=== PATIENT | female | born 1960 | race Asian ===

== ENCOUNTER → 2017-11-21 08:57 | Outpatient (CLI) | payer OTHER, SELFPAY ==
--- NOTE | 2017-11-21 | DI.MG.S_ITS ---
BILATERAL DIGITAL SCREENING MAMMOGRAM 3D/2D WITH CAD: 11/21/2017 CLINICAL: Routine screening. Comparison is made to exams dated: 10/27/2016 mammogram, 10/24/2015 mammogram, and 10/06/2014 mammogram - [facility]. The tissue of both breasts is heterogeneously dense. This may lower the sensitivity of mammography. Current study was also evaluated with a Computer Aided Detection (CAD) system. No significant masses, calcifications, or other findings are seen in either breast. There has been no significant interval change. IMPRESSION: NEGATIVE There is no mammographic evidence of malignancy. A 1 year screening mammogram is recommended. This exam was interpreted at Station ID: [id number]. NOTE: For mammograms, a report in lay terms will be sent to the patient. Approximately 15% of breast malignancies will not be visualized mammographically. In the management of a palpable breast mass, a negative mammogram must not discourage biopsy of a clinically suspicious lesion. Electronically Signed By: Blaine huizar/antonette:11/23/2017 07:30:03 letter sent: Normal Exam ACR BI-RADS Category 1: Negative 3341F
== END ==
PROVIDERS: Family Provider Family Medicine; PCP Family Medicine; Visit Provider Family Medicine
DX: Z12.31 Encounter for screening mammogram for malignant neoplasm of breast (principal)
CPT/HCPCS: 77063; 77067

== ENCOUNTER → 2018-11-24 16:10 | Outpatient (CLI) | payer OTHER, SELFPAY ==
--- NOTE | 2018-11-24 | DI.RAD.S_ITS ---
PROCEDURE: XR CERVICAL SPINE 4V OR 5V INDICATIONS: LEFT UPPER EXTEMITY NUMBNESS, L CERVICAL RADICULOP TECHNIQUE: 5 views of the cervical spine acquired, including both obliques. COMPARISON: None. FINDINGS: Bones: No fractures or dislocations to the T1 level. There is minimal degenerative disc height reduction at C2-3 and C3-4. Mild such degeneration is seen at C4-5 and moderately severe such degeneration is seen at C5-6 and C6-7. Oblique images demonstrate bilaterally symmetric C5-6 and C6-7 osteophyte induced bony foraminal stenoses, moderate in overall severity. Soft tissues: No prevertebral soft tissue swelling. IMPRESSION: Moderate to moderately severe degenerative disc disease most pronounced at C5-6 and C6-7. Foraminal scan spinal stenosis likely is present at these 2 levels. Dictated by: Shahid Cox M.D. on 11/24/2018 at 16:46 Approved by: Shahid Cox M.D. on 11/24/2018 at 16:48
== END ==
PROVIDERS: Family Provider Family Medicine; PCP Family Medicine
DX: R20.0 Anesthesia of skin (principal); M50.122 Cervical disc disorder at C5-C6 level with radiculopathy
CPT/HCPCS: 72050

== ENCOUNTER → 2018-12-03 14:51 | Outpatient (CLI) | payer OTHER, SELFPAY ==
--- NOTE | 2018-12-03 | DI.MG.S_ITS ---
BILATERAL DIGITAL SCREENING MAMMOGRAM 3D/2D WITH CAD: 12/03/2018 CLINICAL: Routine screening. Comparison is made to exams dated: 11/21/2017 mammogram, 10/27/2016 mammogram, 05/22/2016 mammogram, and 10/24/2015 mammogram - [facility]. The tissue of both breasts is heterogeneously dense. This may lower the sensitivity of mammography. Current study was also evaluated with a Computer Aided Detection (CAD) system. There are benign calcifications in both breasts. No significant masses, calcifications, or other findings are seen in either breast. There has been no significant interval change. IMPRESSION: There is no mammographic evidence of malignancy. A 1 year screening mammogram is recommended. This exam was interpreted at Station ID: [id number]. NOTE: For mammograms, a report in lay terms will be sent to the patient. Approximately 15% of breast malignancies will not be visualized mammographically. In the management of a palpable breast mass, a negative mammogram must not discourage biopsy of a clinically suspicious lesion. Electronically Signed By: Nik rodriguez/antonette:12/03/2018 16:50:15 letter sent: Normal Exam ACR BI-RADS Category 2: Benign Finding(s) 3342F
== END ==
PROVIDERS: Family Provider Family Medicine; PCP Family Medicine; Visit Provider Family Medicine
DX: Z12.31 Encounter for screening mammogram for malignant neoplasm of breast (principal)
CPT/HCPCS: 77063; 77067

== ENCOUNTER → 2019-03-21 10:41 | Outpatient (CLI) | payer OTHER, SELFPAY ==
[2019-03-21 12:06] LABS: Add Manual Diff / Slide Review NO; Basophils Absolute Auto 0 /uL (0-100); Basophils Percent Auto 0.8 % (0-2); Eosinophils Absolute Auto 100 /uL (0-450); Hematocrit 38.5 % (36-46); Hemoglobin 12.9 g/dL (12.0-16.0); Lymphocytes Absolute Auto 1000 /uL (1100-4500); Lymphocytes Percent Auto 26.3 % (25-40); Mean Corpuscular HGB Conc 33.6 % (30-36); Mean Corpuscular Hemoglobin 32.1 PG (26-34); Mean Corpuscular Volume 95.7 fL (80-100); Monocytes Absolute Auto 500 /uL (0-900); Monocytes Percent Auto 12.1 % (3-14); Neutrophils Absolute Auto 2200 /uL (1500-7000); Neutrophils Percent Auto 57.8 % (50-75); Platelet Count 317 X10^3/uL (150-400); Red Blood Cell Count 4.02 X10^6/uL (4.0-5.2); Red Cell Distribution Width 13.5 % (11.6-14.8); White Blood Cell Count 3.7 X10^3/uL (4.5-11.0)
[2019-03-21 13:33] LABS: HEMOLYSIS < 15 (0-50)
[2019-03-21 13:35] LABS: Alanine Aminotransferase 23 IU/L (9-52); Albumin 4.2 g/dL (3.5-5.0); Albumin Globulin Ratio 1.4 (1.0-2.8); Alkaline Phosphatase 78 U/L (38-126); Aspartate Aminotransferase 33 IU/L (14-36); BUN Creatinine Ratio 28.6 (6-22); Bilirubin Total 0.5 mg/dL (0.2-1.3); Blood Urea Nitrogen 20 mg/dL (7-17); Calcium 9.5 mg/dL (8.4-10.2); Carbon Dioxide 28 mmol/L (22-32); Chloride 102 mmol/L (98-107); Estimated Glomerular Filt Rate > 60.0 mL/min (>60); Globulin 3.1 g/dL (1.7-4.1); Glucose 96 mg/dL (70-100); Sodium 141 mmol/L (137-145); Total Protein 7.3 g/dL (6.3-8.2)
[2019-03-21 13:58] LABS: TSH w/ Reflex to FT4 1.11 uIU/mL (0.47-4.68)
== END ==
PROVIDERS: Family Provider Family Medicine; PCP Family Medicine; Visit Provider Family Medicine
DX: R53.83 Other fatigue (principal); Z78.0 Asymptomatic menopausal state
CPT/HCPCS: 36415; 80053; 84443; 85025

== ENCOUNTER → 2020-02-02 15:19 | Outpatient (CLI) | payer OTHER, SELFPAY ==
--- NOTE | 2020-02-02 | DI.MG.S_ITS ---
BILATERAL DIGITAL SCREENING MAMMOGRAM 3D/2D WITH CAD: 02/02/2020 CLINICAL: Routine screening. Comparison is made to exams dated: 12/03/2018 mammogram, 10/27/2016 mammogram, and 11/21/2017 mammogram - [facility]. The tissue of both breasts is heterogeneously dense. This may lower the sensitivity of mammography. Current study was also evaluated with a Computer Aided Detection (CAD) system. There are benign calcifications in both breasts. No significant masses, calcifications, or other findings are seen in either breast. There has been no significant interval change. IMPRESSION: There is no mammographic evidence of malignancy. A 1 year screening mammogram is recommended. This exam was interpreted at Station ID: [id number]. NOTE: For mammograms, a report in lay terms will be sent to the patient. Approximately 15% of breast malignancies will not be visualized mammographically. In the management of a palpable breast mass, a negative mammogram must not discourage biopsy of a clinically suspicious lesion. Electronically Signed By: Faizan hernández/antonette:02/02/2020 17:36:48 letter sent: Normal Exam ACR BI-RADS Category 2: Benign Finding(s) 3342F
== END ==
PROVIDERS: Family Provider Family Medicine; PCP Family Medicine; Referring Provider Family Medicine; Visit Provider Family Medicine
DX: Z12.31 Encounter for screening mammogram for malignant neoplasm of breast (principal)
CPT/HCPCS: 77063; 77067

== ENCOUNTER → 2021-02-15 15:22 | Outpatient (CLI) | payer OTHER, SELFPAY ==
--- NOTE | 2021-02-15 15:24 | DI.MG.S_ITS ---
BILATERAL DIGITAL SCREENING MAMMOGRAM 3D/2D WITH CAD: 02/15/2021 CLINICAL: Routine screening. Comparison is made to exams dated: 02/02/2020 mammogram, 12/03/2018 mammogram, and 11/21/2017 mammogram - [facility]. The tissue of both breasts is heterogeneously dense. This may lower the sensitivity of mammography. Current study was also evaluated with a Computer Aided Detection (CAD) system. There are benign calcifications in both breasts. No significant masses, calcifications, or other findings are seen in either breast. There has been no significant interval change. IMPRESSION: BENIGN There is no mammographic evidence of malignancy. A 1 year screening mammogram is recommended. This exam was interpreted at Station ID: [id number]. NOTE: For mammograms, a report in lay terms will be sent to the patient. Approximately 15% of breast malignancies will not be visualized mammographically. In the management of a palpable breast mass, a negative mammogram must not discourage biopsy of a clinically suspicious lesion. Electronically Signed By: Nik rodriguez/antonette:02/15/2021 16:02:38 letter sent: Normal Exam ACR BI-RADS Category 2: Benign Finding(s) 3342F
== END ==
PROVIDERS: Family Provider Family Medicine; PCP Family Medicine; Referring Provider Family Medicine; Visit Provider Family Medicine
DX: Z12.31 Encounter for screening mammogram for malignant neoplasm of breast (principal)
CPT/HCPCS: 77063; 77067

== ENCOUNTER 2021-10-24 15:50 | Emergency (ER) | payer OTHER, SELFPAY ==
[2021-10-24 16:04] VITALS: BP 167/72; PULSE 74; RESP 20; TEMP 36.7; O2SAT 98; BMI 23.8
--- NOTE | 2021-10-24 21:15 | PC.NURSE ---
c/o tingling to the left side no neural deficits noted, hx of a pinched nerve
--- NOTE | 2021-10-24 21:22 | ED_ITS ---
HPI - Neuro Symptoms/Deficit General Chief Complaint: Neuro Symptoms/Deficit Stated Complaint: Tingling and Numbness on Lt Side Time Seen by Provider: 10/24/21 21:08 Source: patient Mode of arrival: Ambulatory History of Present Illness HPI Narrative: Patient is a 61-year-old female. Is relatively healthy. Is here in the emergency department for evaluations of symptoms she developed earlier today. She states that she started to have pain in her left thigh. She has had issues like this in the past. She states that is happened in the past when she has been standing on her left side and leaning to her left side. It does give some characteristics of radiculopathy per her reports. She also states that earlier today she had discomfort on the outside of her left breast. That has resolved. She was also having some tingling to the left side of her face. That has also resolved. With tingling to left side of her face in the pain left side of her breast lasted approximately 1 hour. Was of fairly sudden onset. She has never had anything like this in the past. At the time was not describing any other associated symptoms. The not tried anything for the symptoms prior to arrival. On Anticoagulants: No Related Data Home Medications Medication Instructions Recorded Confirmed multivitamin 1 tab PO DAILY 10/16/21 10/16/21 Previous Rx's Medication Instructions Recorded triamcinolone acetonide 0.5 % 1 applic TOP TID #15 g 10/17/21 topical cream Allergies Allergy/AdvReac Type Severity Reaction Status Date / Time No Known Drug Allergies Allergy Verified 10/17/21 11:07 Review of Systems Review of Systems ROS Unobtainable: All systems reviewed & are unremarkable except as noted in HPI and below Constitutional Constitutional: Denies fever(s), Denies headache(s) and Denies weakness Eyes Eyes: Denies change in vision and Denies loss of vision ENT Ears, Nose, Mouth, and Throat: Reports system reviewed and no additional compla ints, except as documented, Reports as per HPI, Denies vertigo, Denies dizziness and Denies headache(s) Cardiovascular Cardiovascular: Reports system reviewed and no additional complaints, except as documented, Denies chest pain and Denies dyspnea Comments: Left breast pain Respiratory Respiratory: Denies cough and Denies dyspnea Gastrointestinal Gastrointestinal: Reports system reviewed and no additional complaints, except as documented and Denies abdominal pain Genitourinary Genitourinary: Reports system reviewed and no additional complaints, except as documented Musculoskeletal Musculoskeletal: Reports system reviewed and no additional complaints, except as documented, Reports as per HPI, Denies abnormal gait and Reports numbness Integumentary/Breasts Skin/Breast: Denies rash Neurologic Neurologic: Denies system reviewed and no additional complaints, except as documented, Reports as per HPI, Denies abnormal movements, Denies abnormal speech, Denies abnormal gait, Denies vertigo, Denies dizziness, Denies headache(s), Denies loss of vision, Reports numbness and Denies weakness Psychiatric Psychiatric: Reports system reviewed and no additional complaints, except as documented Hematologic/Lymphatic On Anticoagulants: No Allergic/Immunologic Allergic/Immunologic: Reports system reviewed and no additional complaints, except as documented Patient History Medical History Pre-syncope (12/30/13) Surgical History Status post colonoscopy Status post laparoscopic cholecystectomy Status post tubal ligation Family History Mother Ovarian cancer Stomach cancer Social History Smoking Status: Former smoker Smoking Status: Former smoker alcohol intake frequency: holidays/special occasions only Alcohol type: wine Substance Use Type: does not use Exam Initial Vital Signs Initial Vital Signs: Vital Signs Temperature 98.1 F 10/24/21 16:04 Pulse Rate 74 10/24/21 16:04 Respiratory Rate 20 10/24/21 16:04 Blood Pressure 167/72 H 10/24/21 16:04 Pulse Oximetry 98 10/24/21 16:04 HENOH Head: normal to inspection and normocephalic Face and sinus: normal facial exam Mouth: oral mucosae normal Eyes General: appearance normal, both eyes and all related structures Pupils: PERRL EOM: EOM intact bilaterally Chest Chest: No crepitus and No tenderness Resp Effort & Inspection: normal respiratory effort Auscultation: clear to auscultation bilaterally Cardio Rate: regular rate Rhythm: regular rhythm GI Inspection: normal to inspection Palpation: soft and No tender Skin General: no rashes or lesions noted Neuro General: patient alert, patient awake, patient oriented x3 and moves all extremities Cranial Nerves: CN's II-XI intact bilaterally Cognition: normal cognition Speech: speech normal Gait: normal gait Sensory Exam: no sensory deficits noted Extrem General: normal to inspection and capillary refill normal Psych Appearance: grossly normal and well kempt Course Orders Ordered: ED Orders 10/24/21 21:34 Complete Blood Count AUTO DIFF Stat Comprehensive Metabolic Panel Stat Magnesium Stat Phosphorous Stat Vital Signs Vital signs: Vital Signs - 8 hr 10/24/21 23:26 Pulse Rate 68 Respiratory Rate 18 Blood Pressure 147/81 H Pulse Oximetry 100 MDM - Neuro Symptoms/Deficit Lab Data Attestation: I reviewed the patient's lab results. Result diagrams: 10/24/21 21:34 10/24/21 21:34 Labs: Lab Results 10/24/21 10/24/21 Range/Units 21:34 21:34 WBC 4.8 (4.5-11.0) X10^3/uL RBC 4.26 (4.0-5.2) X10^6/uL Hgb 13.8 (12.0-16.0) g/dL Hct 40.4 (36-46) % MCV 94.7 (80-100) fL MCH 32.3 (26-34) PG MCHC 34.1 (30-36) % RDW 13.9 (11.6-14.8) % Plt Count 267 (150-400) X10^3/uL Neut % (Auto) 55.3 (50-75) % Lymph % (Auto) 31.2 (25-40) % Cavalier % (Auto) 10.5 (3-14) % Eos % (Auto) 2.2 (2-4) % Baso % (Auto) 0.8 (0-2) % Neut # (Auto) 2700 (3032-3049) /uL Lymph # (Auto) 1500 (8934-3717) /uL Cavalier # (Auto) 500 (0-900) /uL Eos # (Auto) 100 (0-450) /uL Baso # (Auto) 0 (0-100) /uL Sodium 140 (137-145) mmol/L Potassium 4.3 (3.4-5.1) mmol/L Chloride 103 (98-107) mmol/L Carbon Dioxide 28 (22-32) mmol/L BUN 21 H (7-17) mg/dL Creatinine 0.84 (0.52-1.04) mg/dL Estimated GFR > 60 (>60) mL/min BUN/Creatinine Ratio 25.0 H (6-22) Glucose 101 H (70-100) mg/dL Calcium 8.9 (8.4-10.2) mg/dL Phosphorus 3.8 (2.5-4.5) mg/dL Magnesium 2.1 (1.6-2.3) mg/dL Total Bilirubin 0.4 (0.2-1.3) mg/dL AST 36 (14-36) IU/L ALT 24 (<35) IU/L Alkaline Phosphatase 64 (38-126) U/L Total Protein 8.2 (6.3-8.2) g/dL Albumin 4.5 (3.5-5.0) g/dL Globulin 3.7 (1.7-4.1) g/dL Albumin/Globulin Ratio 1.2 (1.0-2.8) MDM Narrative Medical decision making narrative: The symptoms that she describes that her left leg could we will be radiculopathy as a does correspond to the upper lumbar region and she has had symptoms similar to this in the past and she can somewhat reproduces symptoms by leaning to the left side. The pain in her left breast has resolved. I have low suspicion for ACS or pulmonary embolism given her presentation. It did seem to be isolated to the skin to the left side of her left breast. There is no changes there currently. She did have tingling in the left side of her face. She has no other neurologic symptoms. There is no skin rash over the area. Low suspicion for zoster. Low suspicion for Landers's palsy. Given her presentation also have low suspicion for TIA or CVA. She is afebrile. Electrolytes are unremarkable. Unsure the exact etiology of all of her symptoms however I feel patient could be safely discharged home with strict return precautions and follow-up with primary doctor. Patient expressed understanding of this lack of definitive diagnosis. She was in agreement expressed understanding of the return precautions and plan. Discharge Plan Departure Patient Disposition: Home Clinical Impression: Paresthesias Instructions: DI for Numbness/Tingling Activity Restrictions/Additional Instructions: Please keep all of your scheduled medical appointments. Recommend that you contact your primary doctor for a follow-up and return to the emergency department for any new or worsening symptoms like we discussed. Prescriptions: No Action multivitamin Tablet 1 tab PO DAILY 0RF triamcinolone acetonide 0.5 % cream 1 applic TOP TID Qty: 15 2RF Referrals: Nathalie Cabrera MD [Primary Care Provider] -
[2021-10-24 21:54] LABS: Add Manual Diff / Slide Review NO; Basophils Absolute Auto 0 /uL (0-100); Basophils Percent Auto 0.8 % (0-2); Eosinophils Absolute Auto 100 /uL (0-450); Eosinophils Percent Auto 2.2 % (2-4); Hematocrit 40.4 % (36-46); Hemoglobin 13.8 g/dL (12.0-16.0); Lymphocytes Absolute Auto 1500 /uL (1100-4500); Lymphocytes Percent Auto 31.2 % (25-40); Mean Corpuscular HGB Conc 34.1 % (30-36); Mean Corpuscular Hemoglobin 32.3 PG (26-34); Mean Corpuscular Volume 94.7 fL (80-100); Monocytes Absolute Auto 500 /uL (0-900); Monocytes Percent Auto 10.5 % (3-14); Neutrophils Absolute Auto 2700 /uL (1500-7000); Neutrophils Percent Auto 55.3 % (50-75); Platelet Count 267 X10^3/uL (150-400); Red Blood Cell Count 4.26 X10^6/uL (4.0-5.2); Red Cell Distribution Width 13.9 % (11.6-14.8); White Blood Cell Count 4.8 X10^3/uL (4.5-11.0)
[2021-10-24 21:59] LABS: Alanine Aminotransferase 24 IU/L (<35); Albumin 4.5 g/dL (3.5-5.0); Albumin Globulin Ratio 1.2 (1.0-2.8); Alkaline Phosphatase 64 U/L (38-126); Aspartate Aminotransferase 36 IU/L (14-36); Bilirubin Total 0.4 mg/dL (0.2-1.3); Blood Urea Nitrogen 21 mg/dL (7-17); Calcium 8.9 mg/dL (8.4-10.2); Carbon Dioxide 28 mmol/L (22-32); Chloride 103 mmol/L (98-107); Estimated Glomerular Filt Rate > 60 mL/min (>60); Globulin 3.7 g/dL (1.7-4.1); Glucose 101 mg/dL (70-100); HEMOLYSIS < 15 (0-50); Magnesium 2.1 mg/dL (1.6-2.3); Phosphorous 3.8 mg/dL (2.5-4.5); Potassium 4.3 mmol/L (3.4-5.1); Sodium 140 mmol/L (137-145); Total Protein 8.2 g/dL (6.3-8.2)
[2021-10-24 23:26] VITALS: BP 147/81; PULSE 68; RESP 18; O2SAT 100
== END 2021-10-24 23:31 | disposition home or self-care (01) ==
PROVIDERS: Emergency Provider Emergency Medicine; Family Provider Family Medicine; PCP Family Medicine
DX: R20.2 Paresthesia of skin (principal); Z87.891 Personal history of nicotine dependence
CPT/HCPCS: 36415; 80053; 83735; 84100; 85025; 99281; 99283

== ENCOUNTER → 2021-11-18 12:19 | Outpatient (CLI) | payer OTHER, SELFPAY ==
--- NOTE | 2021-11-18 12:20 | DI.US.S_ITS ---
PROCEDURE: US PELVIC COMPLETE INDICATIONS: SPOTTING POST MENOPAUSE TECHNIQUE: Real-time scanning was performed of the pelvic organs, with image documentation. Additional endovaginal scanning was necessary due to incomplete visualization of the adnexal and endometrial structures by transabdominal scanning. COMPARISON: None. FINDINGS: Uterus: Uterus is anteverted and normal in size at 6.7 x 4.4 x 3.2 cm. The myometrium is homogeneous without dominant mass.. The endometrium measures 6.2 mm combined thickness. There are small cystic areas within the endometrium. No focal endometrial mass. Normal vascularity. Ovaries: The right ovary is not seen. The left ovary measures 1.7 x 1.7 x 1.0 cm, with a calculated ovarian volume of 1.5 cc. The left ovary has a normal sonographic appearance. Less than 12 follicles are present. Normal vascularity. There are dilated adnexal vessels bilaterally, left more so than right. No adnexal masses are seen. Other: No pathologic free abdominal or pelvic fluid. IMPRESSION: 1. Slight thickening and cystic change in the endometrium. While this is most likely cystic endometrial hyperplasia, tissue acquisition is recommended, given slight endometrial thickening for postmenopausal female. 2. Distended periuterine vasculature raising the possibility of pelvic congestion syndrome. 3. Nonvisualization of the right ovary. We strive to produce accurate, complete, and clear reports of imaging services. To assist us in improving patient care, this report was composed using standard report templates and voice recognition software. Therefore, it may contain abnormal punctuation, insertions and/or omissions. Occasional wrong-word or sound-alike substitutions may occur. Though we review the report and make efforts to correct it, we do recommend that the report be read carefully in proper context to recognize any text inaccuracies. Dictated by: Shannon York M.D. on 11/20/2021 at 9:06 Approved by: Shannon York M.D. on 11/20/2021 at 9:10
== END ==
PROVIDERS: Family Provider Family Medicine; PCP Family Medicine; Referring Provider Family Medicine; Visit Provider Family Medicine
DX: N93.9 Abnormal uterine and vaginal bleeding, unspecified (principal); R10.32 Left lower quadrant pain; R93.89 Abnormal findings on diagnostic imaging of other specified body structures; Z13.820 Encounter for screening for osteoporosis; M85.89 Other specified disorders of bone density and structure, multiple sites; Z78.0 Asymptomatic menopausal state; Z80.41 Family history of malignant neoplasm of ovary; Z91.89 Other specified personal risk factors, not elsewhere classified
CPT/HCPCS: 76830; 76856; 77080

== ENCOUNTER → 2022-02-20 11:03 | Outpatient (CLI) | payer OTHER, SELFPAY ==
--- NOTE | 2022-02-20 11:04 | DI.MG.S_ITS ---
BILATERAL DIGITAL SCREENING MAMMOGRAM 3D/2D WITH CAD: 02/20/2022 CLINICAL: Routine screening. Comparison is made to exams dated: 02/15/2021 mammogram, 02/02/2020 mammogram, and 12/03/2018 mammogram - [facility]. The tissue of both breasts is heterogeneously dense. This may lower the sensitivity of mammography. Current study was also evaluated with a Computer Aided Detection (CAD) system. There are benign calcifications in both breasts. No significant masses, calcifications, or other findings are seen in either breast. There has been no significant interval change. IMPRESSION: BENIGN There is no mammographic evidence of malignancy. A 1 year screening mammogram is recommended. Based on the Tyrer Cuzick model (a risk assessment model) the patient's lifetime risk is 9.7% and her 10 year risk is 3.8%. According to the ACR, ACS, and NCCN guidelines, an annual breast MRI exam along with mammogram is recommended if the patient's lifetime risk is 20% or greater. This exam was interpreted at Station ID: [id number]. NOTE: For mammograms, a report in lay terms will be sent to the patient. Approximately 15% of breast malignancies will not be visualized mammographically. In the management of a palpable breast mass, a negative mammogram must not discourage biopsy of a clinically suspicious lesion. Electronically Signed By: Kaveh hernandez/antonette:02/20/2022 11:43:32 letter sent: Normal Exam ACR BI-RADS Category 2: Benign Finding(s) 3342F
== END ==
PROVIDERS: Family Provider Family Medicine; PCP Family Medicine; Referring Provider Pediatrics; Visit Provider Family Medicine
DX: Z12.31 Encounter for screening mammogram for malignant neoplasm of breast (principal)
CPT/HCPCS: 77063; 77067

== ENCOUNTER → 2022-10-29 08:02 | Outpatient (CLI) | payer OTHER, SELFPAY ==
[2022-10-29 09:03] LABS: Hematocrit 40.4 % (36-46); Hemoglobin 13.6 g/dL (12.0-16.0); Mean Corpuscular HGB Conc 33.7 % (30-36); Mean Corpuscular Hemoglobin 32.2 PG (26-34); Mean Corpuscular Volume 95.8 fL (80-100); Platelet Count 325 X10^3/uL (150-400); Red Blood Cell Count 4.22 X10^6/uL (4.0-5.2); Red Cell Distribution Width 13.3 % (11.6-14.8); White Blood Cell Count 4.5 X10^3/uL (4.5-11.0)
[2022-10-29 09:16] LABS: Alanine Aminotransferase 42 IU/L (<35); Albumin 4.5 g/dL (3.5-5.0); Albumin Globulin Ratio 1.2 (1.0-2.8); Alkaline Phosphatase 78 U/L (38-126); Aspartate Aminotransferase 45 IU/L (14-36); BUN Creatinine Ratio 21.9 (6-22); Bilirubin Total 0.5 mg/dL (0.2-1.3); Blood Urea Nitrogen 14 mg/dL (7-17); Calcium 8.8 mg/dL (8.4-10.2); Carbon Dioxide 30 mmol/L (22-32); Chloride 99 mmol/L (98-107); Cholesterol 180 mg/dL (140-199); Estimated Glomerular Filt Rate > 60 mL/min (>60); Globulin 3.7 g/dL (1.7-4.1); Glucose 92 mg/dL (80-110); HDL Cholesterol 58 mg/dL (40-60); HEMOLYSIS < 15 (0-50); LDL Cholesterol Calculated 111 mg/dL (<100); Potassium 3.9 mmol/L (3.4-5.1); Sodium 138 mmol/L (137-145); Total Protein 8.2 g/dL (6.3-8.2); Triglycerides 55 mg/dL (35-150)
== END ==
PROVIDERS: Family Provider Family Medicine; PCP Registered Nurse Diabetes Educator; Referring Provider Registered Nurse Diabetes Educator; Visit Provider Registered Nurse Diabetes Educator
DX: Z00.00 Encounter for general adult medical examination without abnormal findings (principal)
CPT/HCPCS: 36415; 80053; 80061; 84443; 85027

== ENCOUNTER → 2022-11-07 06:51 | Outpatient (CLI) | payer OTHER, SELFPAY ==
--- NOTE | 2022-11-07 06:52 | DI.US.S_ITS ---
PROCEDURE: US PELVIC COMPLETE INDICATIONS: reeval endometrial thickening TECHNIQUE: Real-time scanning was performed of the pelvic organs, with image documentation. Additional endovaginal scanning was necessary due to incomplete visualization of the adnexal and endometrial structures by transabdominal scanning. COMPARISON: [facility], , US PELVIC COMPLETE, 11/18/2021, 13:36. FINDINGS: Uterus: Uterus is anteverted and normal in size at 7.0 x 3.4 x 4.7 cm. The myometrium is heterogeneous. The endometrium measures 5.3 mm combined thickness, previously 6.2 millimeter. Internal cystic change present, similar to prior. Prominent arcuate vasculature. Ovaries: Not visualized due to overlying bowel gas and presumed atrophy. Other: No pathologic free abdominal or pelvic fluid. IMPRESSION: Similar endometrial thickening with internal cystic change, measuring 5.3 millimeters, previously 6.2 millimeters. Cystic endometrial hyperplasia is most likely, but malignancy not excluded. Consider tissue sampling if not artery performed. Prominent arcuate vasculature, which can be seen in the setting of pelvic congestion syndrome. We strive to produce accurate, complete, and clear reports of imaging services. To assist us in improving patient care, this report was composed using standard report templates and voice recognition software. Therefore, it may contain abnormal punctuation, insertions and/or omissions. Occasional wrong-word or sound-alike substitutions may occur. Though we review the report and make efforts to correct it, we do recommend that the report be read carefully in proper context to recognize any text inaccuracies. Dictated by: Erik Andujar M.D. on 11/07/2022 at 9:03 Approved by: Erik Andujar M.D. on 11/07/2022 at 9:07
== END ==
PROVIDERS: Family Provider Family Medicine; PCP Registered Nurse Diabetes Educator; Referring Provider Registered Nurse Diabetes Educator; Visit Provider Registered Nurse Diabetes Educator
DX: R93.89 Abnormal findings on diagnostic imaging of other specified body structures (principal)
CPT/HCPCS: 76830; 76856

== ENCOUNTER → 2022-12-09 17:07 | Outpatient (CLI) | payer OTHER, SELFPAY ==
[2022-12-09 18:33] LABS: Alanine Aminotransferase 21 IU/L (<35); Albumin 4.3 g/dL (3.5-5.0); Albumin Globulin Ratio 1.3 (1.0-2.8); Alkaline Phosphatase 88 U/L (38-126); Aspartate Aminotransferase 30 IU/L (14-36); Bilirubin Total 0.3 mg/dL (0.2-1.3); Bilirubin Unconjugated 0.1 mg/dL (0.0-1.1); Globulin 3.3 g/dL (1.7-4.1); HEMOLYSIS < 15 (0-50); Total Protein 7.6 g/dL (6.3-8.2)
== END ==
PROVIDERS: Family Provider Family Medicine; PCP Registered Nurse Diabetes Educator; Referring Provider Registered Nurse Diabetes Educator; Visit Provider Registered Nurse Diabetes Educator
DX: R74.8 Abnormal levels of other serum enzymes (principal); Z80.41 Family history of malignant neoplasm of ovary
CPT/HCPCS: 36415; 80076; 81162

== ENCOUNTER → 2023-03-05 15:33 | Outpatient (CLI) | payer OTHER, SELFPAY ==
--- NOTE | 2023-03-05 | DI.MG.S_ITS ---
BILATERAL DIGITAL SCREENING MAMMOGRAM 3D/2D WITH CAD: 03/05/2023 CLINICAL: Routine screening. Comparison is made to exams dated: 02/20/2022 mammogram, 02/15/2021 mammogram, and 02/02/2020 mammogram - [facility]. Both breasts are heterogeneously dense, which may obscure small masses (category c / 51-75% glandular tissue). Current study was also evaluated with a Computer Aided Detection (CAD) system. There are benign calcifications in both breasts. No significant masses, calcifications, or other findings are seen in either breast. There has been no significant interval change. IMPRESSION: BENIGN There is no mammographic evidence of malignancy. A 1 year screening mammogram is recommended. Based on the Tyrer Cuzick model (a risk assessment model) the patient's lifetime risk is 9.5% and her 10 year risk is 3.8%. According to the ACR, ACS, and NCCN guidelines, an annual breast MRI exam along with mammogram is recommended if the patient's lifetime risk is 20% or greater. This exam was interpreted at Station ID: [id number]. NOTE: For mammograms, a report in lay terms will be sent to the patient. Approximately 15% of breast malignancies will not be visualized mammographically. In the management of a palpable breast mass, a negative mammogram must not discourage biopsy of a clinically suspicious lesion. Electronically Signed By: Nik rodriguez/antonette:03/15/2023 14:24:20 letter sent: Normal Exam ACR BI-RADS Category 2: Benign Finding(s) 3342F
== END ==
PROVIDERS: Family Provider Family Medicine; PCP Registered Nurse Diabetes Educator; Referring Provider Registered Nurse Diabetes Educator; Visit Provider Registered Nurse Diabetes Educator
DX: Z12.31 Encounter for screening mammogram for malignant neoplasm of breast (principal)
CPT/HCPCS: 77063; 77067

== ENCOUNTER → 2023-05-18 08:54 | Outpatient (CLI) | payer OTHER, SELFPAY ==
--- NOTE | 2023-05-18 08:55 | DI.US.S_ITS ---
PROCEDURE: US PELVIC COMPLETE INDICATIONS: SPOTTING. HISTORY OF ENDOMETRIAL THICKENING TECHNIQUE: Real-time scanning was performed of the pelvic organs, with image documentation. Additional endovaginal scanning was necessary due to incomplete visualization of the adnexal and endometrial structures by transabdominal scanning. COMPARISON: [facility], US, US PELVIC COMPLETE, 11/07/2022, 6:58. FINDINGS: Uterus: Uterus is anteverted and normal in size at 6.4 x 5.8 x 3.1 cm. The myometrium is heterogeneous. No discrete uterine fibroid is seen. Prominent uterine vessels are noted measures up to 2.2 mm in size near fundus. The endometrium measures 6.4 mm combined thickness. No gross endometrial mass or fluid is seen. Tiny cystic areas are noted within endometrium. Ovaries: The right ovary measures 3.1 x 2.3 x 1 cm, with a calculated ovarian volume of 4 cc. The left ovary measures 2.7 x 1.3 x 1 cm, with a calculated ovarian volume of 1.8 cc. 4 x 4 mm echogenic focus within right ovary is seen without internal vascularity. Less than 12 follicles can be seen in each ovary. No adnexal masses are seen. Mild prominence of bilateral adnexal vessels are noted measures up to 5 mm in size on the right side and 5.1 mm in size on the left side. Other: No pathologic free abdominal or pelvic fluid. IMPRESSION: 1. No endometrial mass or fluid. No discrete uterine fibroids. 2. Focal 4 mm calcification involving right ovary. No solid appearing ovarian lesion. No evidence of ovarian torsion. 3. Mild prominence of bilateral adnexal vessels and uterine vessels which can be seen in the case of pelvic congestion suggest clinical correlation. We strive to produce accurate, complete, and clear reports of imaging services. To assist us in improving patient care, this report was composed using standard report templates and voice recognition software. Therefore, it may contain abnormal punctuation, insertions and/or omissions. Occasional wrong-word or sound-alike substitutions may occur. Though we review the report and make efforts to correct it, we do recommend that the report be read carefully in proper context to recognize any text inaccuracies. Dictated by: Óscar Warner M.D. on 05/18/2023 at 13:09 Approved by: Óscar Warner M.D. on 05/18/2023 at 13:13
== END ==
PROVIDERS: Family Provider Family Medicine; PCP Registered Nurse Diabetes Educator; Referring Provider Obstetrics & Gynecology; Visit Provider Obstetrics & Gynecology
DX: N95.0 Postmenopausal bleeding (principal); R93.89 Abnormal findings on diagnostic imaging of other specified body structures
CPT/HCPCS: 76830; 76856

== ENCOUNTER 2023-05-22 07:04 | Day surgery (SDC) | payer OTHER, SELFPAY ==
[2023-05-22 07:20] VITALS: BP 124/84; PULSE 84; RESP 17; TEMP 36.9; O2SAT 98; BMI 24.1
[2023-05-22] MEDS: LACTATED RINGERS 1,000 ML 42 ML IV (08:00)
--- NOTE | 2023-05-22 08:14 | PM.HP.1 ---
History of Present Illness History of Present Illness Date Patient Seen: 05/22/23 Time Patient Seen: 08:14 Chief complaint: Screening Colonoscopy w/poss bx Narrative: Last colonoscopy was 10 years ago. No family history, no symptoms related to colon cancer [facility] Medical History Dyslipidemia BPPV (benign paroxysmal positional vertigo) Pre-syncope (12/30/13) Surgical History Status post colonoscopy Status post tubal ligation Status post laparoscopic cholecystectomy Family History Mother Ovarian cancer Stomach cancer Social History household members: spouse Smoking Status: Former smoker alcohol intake: current Meds Home Medications and Allergies Home Medications Medication Instructions Recorded Confirmed Type multivitamin 1 tab PO DAILY 10/16/21 05/22/23 History triamcinolone acetonide 0.5 % 1 applic topical TID #15 grams 10/17/21 05/22/23 Rx topical cream Allergies Allergy/AdvReac Type Severity Reaction Status Date / Time No Known Drug Allergies Allergy Verified 05/22/23 07:19 Review of Systems Review of Systems ROS: Yes All systems reviewed with the patient and are negative except as otherwise documented Exam Vital Signs (past 8 hours): - 05/22/23 07:20 Temperature 98.4 F Pulse Rate 84 Respiratory Rate 17 Blood Pressure 124/84 Pulse Oximetry 98 Oxygen Delivery Method Room Air Oxygen Delivery Method Room Air Const General: cooperative and healthy appearing Nutritional Appearance: average body habitus [facility] Head: normocephalic and atraumatic Eyes General: appearance normal, both eyes and all related structures Neck Neck: no meningeal signs and trachea midline Resp Effort & Inspection: normal respiratory effort and able to speak in complete sentences Cardio Rate: regular rate Rhythm: regular rhythm GI Palpation: soft and No tender Skin General: elasticity normal Neuro General: patient alert, patient awake and patient oriented x3 Extrem General: normal to inspection Psych Appearance: grossly normal Mental Status: mental status grossly normal Judgment: judgment good Assessment & Plan Assessment & Plan narrative: Colon cancer screening using colonoscopy with anesthesia Time Spent With Patient Time with patient: less than 30 minutes
--- NOTE | 2023-05-22 08:40 | PM.OP.COLON ---
Operative Date/Time/Diagnoses Date of procedure: 05/22/23 Time of procedure: 08:40 Pre-op diagnosis: Colon cancer screening Post-op diagnosis: same Procedure & Clinicians Study performed: Colon cancer screening with colonoscopy using anesthesia Same procedure as scheduled: Yes Indications: Colon cancer screening, Surgeon: Joy Figueroa Procedure Notes Procedure in detail: Preop diagnosis: Colon cancer screening Postop diagnosis: Same Operative procedure: Colonoscopy with anesthesia Surgeon: Darlin Figueroa MD Findings: Normal colon. No diverticulosis, no polyps Procedure: Patient placed in a lateral position. Rectal exam performed showing normal tone no masses. Colonoscope inserted into the rectum and advanced to ileocecal valve with minimal difficulty. Insufflation extraction of the scope including retroflex of the above findings. Impression: Normal colonoscopy. Plan repeat colonoscopy in 10 years for screening purposes unless otherwise indicated by change in clinical condition Specimen(s): none sent Complications: none Post-procedure Recommendations: Colonoscopy in 10 years Follow up: as needed Disposition: PACU
[2023-05-22 08:43] VITALS: BP 109/60; PULSE 71; RESP 16; TEMP 36.8; O2SAT 99
[2023-05-22 08:47] VITALS: BP 111/65; PULSE 73; RESP 16; O2SAT 99
[2023-05-22 08:52] VITALS: BP 116/73; PULSE 73; RESP 16; O2SAT 100
[2023-05-22 08:58] VITALS: BP 124/81; PULSE 69; RESP 16; TEMP 36.2; O2SAT 100
== END 2023-05-22 09:18 | disposition home or self-care (01) ==
PROVIDERS: Family Provider Family Medicine; PCP Registered Nurse Diabetes Educator; Referring Provider Surgery; Visit Provider Surgery
PROC: 0DJD8ZZ Inspection of Lower Intestinal Tract, Via Natural or Artificial Opening Endoscopic (ICD-10-PCS; CPT 45378; principal; 2023-05-22 08:15)
DX: Z12.11 Encounter for screening for malignant neoplasm of colon (principal)
CPT/HCPCS: 45378; J2704

== ENCOUNTER → 2024-03-17 07:43 | Outpatient (CLI) | payer OTHER, SELFPAY ==
--- NOTE | 2024-03-17 07:45 | DI.MG.S_ITS ---
BILATERAL DIGITAL SCREENING MAMMOGRAM 3D/2D WITH CAD: 03/17/2024 CLINICAL: Routine screening. Comparison is made to exams dated: 03/05/2023 mammogram, 02/20/2022 mammogram, and 02/15/2021 mammogram - [facility]. The breasts are heterogeneously dense, which may obscure small masses (category c / 51-75% glandular tissue). Current study was also evaluated with a Computer Aided Detection (CAD) system. There are benign calcifications in both breasts. No significant masses, calcifications, or other findings are seen in either breast. There has been no significant interval change. IMPRESSION: BENIGN There is no mammographic evidence of malignancy. A 1 year screening mammogram is recommended. Based on the Tyrer Cuzick model (a risk assessment model) the patient's lifetime risk is 9.3% and her 10 year risk is 3.9%. According to the ACR, ACS, and NCCN guidelines, an annual breast MRI exam along with mammogram is recommended if the patient's lifetime risk is 20% or greater. This exam was interpreted at Station ID: [id number]. NOTE: For mammograms, a report in lay terms will be sent to the patient. Approximately 15% of breast malignancies will not be visualized mammographically. In the management of a palpable breast mass, a negative mammogram must not discourage biopsy of a clinically suspicious lesion. Electronically Signed By: Nik rodriguez/antonette:03/17/2024 08:56:33 letter sent: Normal Exam ACR BI-RADS Category 2: Benign [id number]
== END ==
PROVIDERS: Family Provider Family Medicine; PCP Registered Nurse Diabetes Educator; Referring Provider Registered Nurse Diabetes Educator; Visit Provider Registered Nurse Diabetes Educator
DX: Z12.31 Encounter for screening mammogram for malignant neoplasm of breast (principal); R92.333 Mammographic heterogeneous density, bilateral breasts
CPT/HCPCS: 77063; 77067

== ENCOUNTER → 2025-01-10 15:36 | Outpatient (CLI) | payer OTHER, SELFPAY ==
--- NOTE | 2025-01-10 15:38 | DI.US.S_ITS ---
PROCEDURE: US THYROID INDICATIONS: POSSIBLE PALPABLE THYROID NODULES TECHNIQUE: Real-time scanning was performed of the thyroid gland, with image documentation. COMPARISON: None. FINDINGS: Thyroid: Right lobe measures 5.7 x 1.6 x 1.2 cm. Left lobe measures 4.7 x 1.8 x 1.2 cm. Isthmus is 0.2 cm thick. Echotexture is homogeneous. No ultrasound evidence thyroid nodule greater than 1 cm. IMPRESSION: No ultrasound evidence of red nodule greater than 1 cm. Dictated by: Nelson Ochoa M.D. on 01/11/2025 at 12:01 Approved by: Nelson Ochoa M.D. on 01/11/2025 at 12:07
== END ==
LOC: US 15:36
PROVIDERS: PCP Registered Nurse Diabetes Educator; Referring Provider Registered Nurse Diabetes Educator; Visit Provider Registered Nurse Diabetes Educator
DX: E04.1 Nontoxic single thyroid nodule (principal)
CPT/HCPCS: 76536

== ENCOUNTER → 2025-03-23 08:17 | Outpatient (CLI) | payer OTHER, SELFPAY ==
--- NOTE | 2025-03-23 08:18 | DI.MG.S_ITS ---
MM screening mammo BI: 03/23/2025. BI-RADS: 2 CLINICAL: 64-year old female for bilateral screening mammogram. Tyrer-Cuzick lifetime risk of 6.4%. No personal or first-degree family history of breast cancer. History of ovarian cancer in one first-degree relative. The patient had a prior right breast biopsy. PRIOR EXAMS 03/17/2024, 03/05/2023, 02/20/2022, 02/15/2021. MAMMOGRAPHY TECHNIQUE: 2D and 3D (tomosynthesis) digital mammographic views obtained, with additional images as needed for full coverage. Current study was also evaluated with a Computer Aided Detection (CAD) system. DENSITY C. The breasts are heterogeneously dense, which may obscure small masses. MAMMOGRAPHY FINDINGS Right: Biopsy marker present on the right. There are no suspicious masses, calcifications, or other findings in the breast. Left: No suspicious mass, asymmetry, microcalcification, or other abnormality seen. IMPRESSION: Right * No evidence of malignancy with benign findings. Left * No evidence of malignancy. RECOMMENDATIONS Bilateral * Annual screening mammography. OVERALL ASSESSMENT CATEGORY BI-RADS-2: Benign. The [employer] recommends annual screening mammography beginning at age 40 for women with average risk of breast cancer. ELECTRONICALLY SIGNED: Harper Prieto M.D. on 03/23/2025 at 12:19:32 PM PT Interpreting Station ID: [id number]
== END ==
PROVIDERS: PCP Registered Nurse Diabetes Educator; Referring Provider Registered Nurse Diabetes Educator; Visit Provider Registered Nurse Diabetes Educator
DX: Z12.31 Encounter for screening mammogram for malignant neoplasm of breast (principal); R92.333 Mammographic heterogeneous density, bilateral breasts; Z80.41 Family history of malignant neoplasm of ovary
CPT/HCPCS: 77063; 77067